=== PATIENT | female | born 1980 | race Caucasian/White ===

== ENCOUNTER 2018-05-20 19:01 | Emergency (ER) | payer BC, OTHER ==
--- NOTE | 2018-05-20 20:05 | ER Document Report ---
ED Medical Screen (RME) - General Chief Complaint: Vag Bleeding, +preg <12wks Stated Complaint: ABDOMINAL PAIN,VAGINAL BLEEDING Time Seen by Provider: 05/20/18 19:58 Primary Care Provider: DAV CLIFTON MD [Primary Care Provider] - Follow up as needed TRAVEL OUTSIDE OF THE [place] IN LAST 30 DAYS: No - HPI Notes: 05/20/18 20:04 Patient is a 37-year-old female approximately 13 weeks 5 days who presents to the emergency department complaining of cramping and spotting that began today. Patient has a blood type O- and was told to come to the emergency department for evaluation and RhoGam by MYSQL DATABASE ADMINISTRATOR. No other concerns or complaints. Denies AMOS, fever, neck pain, URI, CP, SOB, dysuria, or rash. I have treated and performed a rapid initial assessment of this patient. A comprehensive ED assessment and evaluation of the patient, analysis of test results and completion of medical decision making process will be conducted by additional ED providers. Spoke with blood bank, they still need to initiate rhogam w/u prior to dispensing rhogam. PHYSICAL EXAMINATION: GENERAL: Well-appearing, well-nourished and in no acute distress. A&Ox4. Answers questions appropriately. LUNGS: Breath sounds clear to auscultation bilaterally and equal. No wheezes rales or rhonchi. HEART: Regular rate and rhythm without murmurs, rubs, gallops. ABDOMEN: Soft, nondistended abdomen. No guarding, no rebound. Normal bowel sounds present. No CVA tenderness bilaterally. nontender (cannot elicit thorough abd exam w/o table, however). Extremities: No cyanosis, clubbing, or edema b/l. NEUROLOGICAL: Normal speech, normal gait. PSYCH: Normal mood, normal affect. - Related Data Allergies/Adverse Reactions: No Known Allergies Allergy (Verified 12/08/15 00:08) Past Medical History - Social History Chew tobacco use (# tins/day): No Frequency of alcohol use: None Drug Abuse: None Renal/ Medical History: Denies: Hx Peritoneal Dialysis - Immunizations Hx Diphtheria, Pertussis, Tetanus Vaccination: No Physical Exam - Vital signs Vitals: Temp Pulse Resp BP Pulse Ox 98.8 F 67 16 128/80 H 100 05/20/18 19:18 05/20/18 19:18 05/20/18 19:18 05/20/18 19:18 05/20/18 19:18 Course - Vital Signs Vital signs: Temp Pulse Resp BP Pulse Ox 98.8 F 67 16 128/80 H 100 05/20/18 19:18 05/20/18 19:18 05/20/18 19:18 05/20/18 19:18 05/20/18 19:18 Doctor's Discharge - Discharge Referrals: DAV CLIFTON MD [Primary Care Provider] - Follow up as needed
[2018-05-20 20:46] LABS: APPEARANCE,URINE SLIGHTLY-CLOUDY; BILIRUBIN,URINE NEGATIVE (NEGATIVE); COLOR,URINE YELLOW; GLUCOSE, URINE NEGATIVE (NEGATIVE); KETONES,URINE NEGATIVE (NEGATIVE); LEUKOCYTE ESTERASE,URINE NEGATIVE (NEGATIVE); NITRITE,URINE NEGATIVE (NEGATIVE); PROTEIN,URINE NEGATIVE (NEGATIVE); URINE SPECIFIC GRAVITY 1.023; UROBILINOGEN,URINE NEGATIVE mg/dL (<2.0)
--- NOTE | 2018-05-20 22:25 | RADIOLOGY REPORT (SQ) ---
EXAM DESCRIPTION: US LESS THAN 14 WEEKS COMPLETED DATE/TME: 05/20/2018 20:03 CLINICAL HISTORY: 37 years, Female, Pt is 13 weeks 5 days preg/bleeding Findings: Uterus is anteverted and measures 12.4 x 6.9 x 9.2 cm. Single IUP is noted measuring 10 weeks and two days. heart motion is not visualized on color Doppler images. Right ovary measures 4.2 x 2.0 x 2.5 cm. Left ovary measures 3.3 x 1.4 x 2.1 cm. Vascular flow noted in both ovaries on color and spectral Doppler images. No abnormal adnexal masses. Cervix measures 2.5 cm. No free fluid in the cul-de-sac. IMPRESSION: Findings consistent with intrauterine demise.
--- NOTE | 2018-05-21 00:18 | ER Document Report ---
ED General - General Chief Complaint: Vag Bleeding, +preg <12wks Stated Complaint: ABDOMINAL PAIN,VAGINAL BLEEDING Time Seen by Provider: 05/20/18 19:58 Primary Care Provider: ELOINA RICHMOND DO [ACTIVE STAFF] - Follow up tomorrow (Please call at 8am for an appointment tomorrow) Notes: Due to a small amount of vaginal spotting as well as intermittent lower abdominal cramping. States vaginal spotting started earlier today, was a very mild amount of brownish vaginal discharge. He states for the past 2-3 days she has been having some intermittent generalized lower abdominal cramping. Describes pain as being mild to moderate, intermittent in nature. Not improving or worsening since onset. Nothing seems to improve or worsen the symptoms. No history of similar symptoms during her previous . She did contact the OB on-call who recommended she come to the emergency department given that she is Rh- and needed RhoGam. Patient denies fever or constitutional symptoms. No dysuria. No trauma to the abdomen. TRAVEL OUTSIDE OF THE [place] IN LAST 30 DAYS: No - Related Data Allergies/Adverse Reactions: No Known Allergies Allergy (Verified 12/08/15 00:08) Past Medical History - General Information source: Patient - Social History Smoking Status: Never Smoker Chew tobacco use (# tins/day): No Frequency of alcohol use: None Drug Abuse: None Lives with: Spouse/Significant other Family History: Reviewed & Not Pertinent Patient has suicidal ideation: No Patient has homicidal ideation: No Renal/ Medical History: Denies: Hx Peritoneal Dialysis - Immunizations Hx Diphtheria, Pertussis, Tetanus Vaccination: No Review of Systems - Review of Systems Notes: Constitutional: Negative for fever. HENT: Negative for sore throat. Eyes: Negative for visual changes. Cardiovascular: Negative for chest pain. Respiratory: Negative for shortness of breath. Gastrointestinal: Positive for lower abdominal cramping Genitourinary: Positive vaginal bleeding Musculoskeletal: Negative for back pain. Skin: Negative for rash. Neurological: Negative for headaches, weakness or numbness. 10 point ROS negative except as marked above and in HPI. Physical Exam - Vital signs Vitals: Temp Pulse Resp BP Pulse Ox 98.8 F 67 16 128/80 H 100 05/20/18 19:18 05/20/18 19:18 05/20/18 19:18 05/20/18 19:18 05/20/18 19:18 Interpretation: Normal Notes: PHYSICAL EXAMINATION: GENERAL: Well-appearing, well-nourished and in no acute distress. HEAD: Atraumatic, normocephalic. EYES: Pupils equal round and reactive to light, extraocular movements intact, sclera anicteric, conjunctiva are normal. ENT: nares patent, oropharynx clear without exudates. Moist mucous membranes. NECK: Normal range of motion, supple without lymphadenopathy LUNGS: Breath sounds clear to auscultation bilaterally and equal. No wheezes rales or rhonchi. HEART: Regular rate and rhythm without murmurs ABDOMEN: Soft, nontender, normoactive bowel sounds. No guarding, no rebound. No masses appreciated. EXTREMITIES: Normal range of motion, no pitting or edema. No cyanosis. NEUROLOGICAL: No focal neurological deficits. Moves all extremities spontaneously and on command. PSYCH: Normal mood, normal affect. SKIN: Warm, Dry, normal turgor, no rashes or lesions noted. Course - Re-evaluation Re-evalutation: 05/21/18 00:15 Patient is a Rh- patient presents with vaginal spotting and abdominal cramping in the setting of a first trimester . Unfortunately the patient's ultrasound does show intrauterine demise. She is measuring at 10 weeks and 2 days despite her 8-week ultrasound indicating that she should currently be 13 weeks and 5 days. I did disclose this unfortunate finding to the patient who did convey to her on the phone. The patient will receive RhoGam given that she is Rh-. I did consult with the PURCHASING OFFICER on-call Dr. xavier who asks that the patient be followed up in clinic tomorrow. I have a dvised the patient to call the women's clinic at 8 AM in the morning and set up an appointment for consideration of medical versus surgical options for the situation. The remainder of her exam is otherwise benign. She has had only mild vaginal spotting, no heavy bleeding. At this time will discharge with return precautions and follow-up recommendations. Verbal discharge instructions given a the bedside and opportunity for questions given. Medication warnings reviewed. Patient is in agreement with this plan and has verbalized understanding of return precautions and the need for primary care follow-up in the next 24-72 hours. - Vital Signs Vital signs: Temp Pulse Resp BP Pulse Ox 98.4 F 63 16 147/96 H 100 05/21/18 00:28 05/21/18 00:28 05/21/18 00:28 05/21/18 00:28 05/21/18 00:28 - Laboratory Laboratory results interpreted by me: 05/20/18 20:19 Urine Blood LARGE H - Diagnostic Test Radiology reviewed: Reports reviewed Discharge - Discharge Clinical Impression: demise, First trimester bleeding Condition: Good Disposition: HOME, SELF-CARE Additional Instructions: Unfortunately your ultrasound today shows that you have had demise. You have received RhoGam prior to discharge. This is because of your blood type being O-. Please contact the women's clinic office at 8 AM tomorrow morning to schedule an appointment to be seen tomorrow. Please return to the emergency department sooner if you began bleeding through more than 2 pads per hour for more than 2 hours, develop severe abdominal pain, develop a fever of greater than 100.4 F, have persistent vomiting, or any other symptoms that are worrisome to you. Referrals: ELOINA RICHMOND, DO [ACTIVE STAFF] - Follow up tomorrow (Please call at 8am for an appointment tomorrow)
[2018-05-21 00:29] VITALS: BP 147/96
== END 2018-05-21 00:29 | disposition home or self-care (01) ==
LOC: ER 19:01
DX: O36.0910 Maternal care for other rhesus isoimmunization, first trimester, not applicable or unspecified (principal); O02.1 Missed abortion; Z3A.13 13 weeks gestation of pregnancy
CPT/HCPCS: 99284; 96372; 86900; 86901; 36415; 87086; 86870; 86850; 81001; 76801; 93976; J2790

== ENCOUNTER 2018-05-21 14:23 | Emergency (ER) | payer OTHER ==
[2018-05-21 14:52] LABS: ABSOLUTE EOSINOPHILS # (AUTO) 0.2 10^3/uL (0.0-0.6); ABSOLUTE LYMPHOCYTES (AUTO) 2.4 10^3/uL (0.5-4.7); ABSOLUTE MONOCYTES (AUTO) 0.5 10^3/uL (0.1-1.4); BASOPHILS % (AUTO) 0.4 % (0-2); EOSINOPHILS % (AUTO) 2.4 % (0-6); HEMATOCRIT 39.9 % (36.0-47.0); HEMOGLOBIN 13.7 g/dL (12.0-15.5); MEAN CORPUSCULAR HEMOGLOBIN 29.4 pg (27.0-33.4); MEAN CORPUSCULAR HGB CONC 34.4 g/dL (32.0-36.0); MEAN CORPUSCULAR VOLUME 86 fl (80-97); MONOCYTES % (AUTO) 5.9 % (3-13); PLATELET COUNT 239 10^3/uL (150-450); RED BLOOD COUNT 4.66 10^6/uL (3.72-5.28); RED CELL DISTRIBUTION WIDTH 13.9 % (11.5-14.0); SEGMENTED NEUTROPHILS % (AUTO) 65.3 % (42-78); TOTAL CELLS COUNTED % (AUTO) 100 %; WHITE BLOOD COUNT 9.2 10^3/uL (4.0-10.5)
[2018-05-21 17:47] LABS: APPEARANCE,URINE SLIGHTLY-CLOUDY; BILIRUBIN,URINE NEGATIVE (NEGATIVE); COLOR,URINE YELLOW; GLUCOSE, URINE NEGATIVE (NEGATIVE); KETONES,URINE NEGATIVE (NEGATIVE); LEUKOCYTE ESTERASE,URINE NEGATIVE (NEGATIVE); NITRITE,URINE NEGATIVE (NEGATIVE); PROTEIN,URINE NEGATIVE (NEGATIVE); URINE SPECIFIC GRAVITY 1.026; UROBILINOGEN,URINE NEGATIVE mg/dL (<2.0)
--- NOTE | 2018-05-21 19:07 | ER Document Report ---
ED General - General Chief Complaint: Vag Bleeding, +preg <12wks Stated Complaint: VAGINAL BLEEDING Time Seen by Provider: 05/21/18 16:21 Primary Care Provider: DAV CLIFTON MD [Primary Care Provider] - Follow up as needed TRAVEL OUTSIDE OF THE [place] IN LAST 30 DAYS: No - HPI Notes: Patient is a female, suffered intrauterine demise at approximately 13 weeks, who presents emergency department for dizziness and vaginal bleeding. She was actually seen here recently, diagnosed with this IUFD. She was seen in follow-up, given Cytotec. She had sudden onset heavy bleeding and clots. She felt very lightheaded, dizzy. She became very concerned that she might be losing too much blood so she presents to the emergency department for evaluation. - Related Data Allergies/Adverse Reactions: No Known Allergies Allergy (Verified 12/08/15 00:08) Past Medical History - General Information source: Patient - Social History Smoking Status: Never Smoker Frequency of alcohol use: Rare Drug Abuse: None Family History: Reviewed & Not Pertinent Patient has suicidal ideation: No Patient has homicidal ideation: No Renal/ Medical History: Denies: Hx Peritoneal Dialysis - Immunizations Hx Diphtheria, Pertussis, Tetanus Vaccination: No Review of Systems - Review of Systems Constitutional: No symptoms reported EENT: No symptoms reported Cardiovascular: No symptoms reported Respiratory: No symptoms reported Gastrointestinal: No symptoms reported Genitourinary: No symptoms reported Female Genitourinary: See HPI Musculoskeletal: No symptoms reported Skin: No symptoms reported Neurological/Psychological: See HPI Physical Exam - Vital signs Vitals: Temp Pulse Resp BP Pulse Ox 98.4 F 67 18 141/71 H 100 05/21/18 14:28 05/21/18 14:28 05/21/18 14:28 05/21/18 14:28 05/21/18 14:28 - Notes Notes: Vital signs reviewed, please refer to chart. Patient is normocephalic, atraumatic. Pupils equal round, reactive to light. Neck is supple without meningismus. Heart is regular rate and rhythm. Lungs are clear to auscultation bilaterally. Abdomen is soft, nontender, normoactive bowel sounds throughout. Extremities without cyanosis, clubbing, edema. Peripheral pulses are equal. Skin is warm and dry. Patient is awake, alert, oriented x3. Cranial nerves II through XII are grossly intact without focal neurological deficits. Strength is plus 5 out of 5 bilateral upper and lower extremities. Sensation is intact, reflexes symmetrical, gait within normal limits. Pelvic exam is performed. There is a mild amount of vaginal bleeding noted. Cervical loss is open, no tissue at the office. No significant tenderness. Course - Re-evaluation Re-evalutation: 05/21/18 19:05 Patient presented to the emergency department for evaluation. She had laboratory investigations as ordered through triage. Her hemoglobin is within normal limits. She is not heavily bleeding at this time. She is to follow-up with her OB, return to the ED with worsening or new concerning symptoms. - Vital Signs Vital signs: Temp Pulse Resp BP Pulse Ox 98.4 F 67 18 141/71 H 100 05/21/18 14:28 05/21/18 14:28 05/21/18 14:28 05/21/18 14:28 05/21/18 14:28 - Laboratory Result Diagrams: 05/21/18 14:06 Laboratory results interpreted by me: 05/21/18 17:13 Urine Blood LARGE H Discharge - Discharge Clinical Impression: Miscarriage, Dizziness Condition: Stable Disposition: HOME, SELF-CARE Instructions: Miscarriage ([facility]) Additional Instructions: Continue complete pelvic rest instructions as previously informed. Follow-up with OB as scheduled. Rest. If you start going through more than 2 pads an hour, develop chest pain, dizziness, fever, or any other new or concerning symptoms, return immediately to the emergency department for reevaluation. Referrals: DAV CLIFTON MD [Primary Care Provider] - Follow up as needed
[2018-05-21 19:21] VITALS: BP 115/72
== END 2018-05-21 19:28 | disposition home or self-care (01) ==
LOC: ER 14:23
DX: O03.9 Complete or unspecified spontaneous abortion without complication (principal); R42 Dizziness and giddiness
CPT/HCPCS: 36415; 81001; 85025; 99284

== ENCOUNTER 2019-04-20 08:25 | Inpatient (IN) | payer OTHER ==
[2019-04-20] MEDS ORDERED: PENICILLIN G-K 5 MILLION UNIT VIAL ONE (08:47)
[2019-04-20] MEDS ORDERED: MISOPROSTOL 0.2 MG TABLET ONE ×2 (08:48→08:51)
[2019-04-20] MEDS ORDERED: OXYTOCIN 10 UNIT/ML VIAL ONE ×2 (08:48→08:51)
[2019-04-20] MEDS ORDERED: OXYTOCIN/NORMAL SALINE 0 UNIT/0 ML RTUINJ ONE (08:48)
[2019-04-20] MEDS ORDERED: LIDOCAINE 1% INJ-PF (10 MG/ML) 30 ML SDV ONE ×2 (08:48→08:51)
[2019-04-20] MEDS ORDERED: OXYTOCIN/NORMAL SALINE 20 UNIT/1,000 ML RTUINJ ONE (08:52)
[2019-04-20] MEDS ORDERED: RINGERS SOLUTION,LACTATED 1,000 ML IV ONE (08:54)
[2019-04-20] MEDS ORDERED: PENICILLIN G POTASSIUM 5,000,000 UNIT in DEXTROSE 5%-WATER 100 ML IV ONE (08:54)
[2019-04-20] MEDS ORDERED: RINGERS SOLUTION,LACTATED 1,000 ML IV PRN (08:54)
[2019-04-20 09:36] LABS: ABSOLUTE EOSINOPHILS # (AUTO) 0.1 10^3/uL (0.0-0.6); ABSOLUTE LYMPHOCYTES (AUTO) 1.2 10^3/uL (0.5-4.7); ABSOLUTE MONOCYTES (AUTO) 0.5 10^3/uL (0.1-1.4); ABSOLUTE NEUT (AUTO) 9.5 10^3/uL (1.7-8.2); BASOPHILS % (AUTO) 0.4 % (0-2); EOSINOPHILS % (AUTO) 0.6 % (0-6); HEMATOCRIT 36.6 % (36.0-47.0); HEMOGLOBIN 12.1 g/dL (12.0-15.5); LYMPHOCYTES % (AUTO) 10.6 % (13-45); MEAN CORPUSCULAR HEMOGLOBIN 27.5 pg (27.0-33.4); MEAN CORPUSCULAR HGB CONC 33.2 g/dL (32.0-36.0); MEAN CORPUSCULAR VOLUME 83 fl (80-97); MONOCYTES % (AUTO) 4.8 % (3-13); PLATELET COUNT 198 10^3/uL (150-450); RED BLOOD COUNT 4.41 10^6/uL (3.72-5.28); RED CELL DISTRIBUTION WIDTH 21.2 % (11.5-14.0); SEGMENTED NEUTROPHILS % (AUTO) 83.6 % (42-78); TOTAL CELLS COUNTED % (AUTO) 100 %; WHITE BLOOD COUNT 11.4 10^3/uL (4.0-10.5)
[2019-04-20] MEDS ORDERED: FENTANYL/BUPIVACAINE/NS/PF 300 MCG/150 ML RTUINJ EPI ONE (09:41)
[2019-04-20] MEDS ORDERED: EPHEDRINE SULFATE INJ 50 MG/1 ML AMPULE ONE (09:41)
[2019-04-20] MEDS ORDERED: BUPIVACAINE HCL 0.25 % INJ/PF (2.5 MG/1 ML) 30 ML VIAL ONE (09:41)
--- NOTE | 2019-04-20 09:56 | Admission Physical ---
Datetime Report Generated by CPN: 04/20/2019 09:56 CURRENT ADMISSION Chief Complaint: Uterine Contractions Indication for Induction: Not Applicable Admit Impression : Term, Intrauterine ; Active Labor; Intact Membranes Admit Plan: Admit to Unit; Initiate Labor Protocol ALLERGIES Medication Allergies: No Known Allergies (12/08/2015) OBSTETRICAL HISTORY EDC: 04/24/2019 00:00 : 5 Para: 3 Term: 3 : 0 SAB: 1 IAB: 0 Ectopic: 0 Livin Cesareans: 0 VBACs: 0 Multiple Births: 0 Gestational Diabetes: No Rh Sensitization: No Incompetent Cervix: No NHUNG: No Infertility: No ART Treatment: No Uterine Anomaly: No IUGR: No Hx Previous C/S: No Macrosomia: No Hx Loss/Stillborn: No PIH: No Hx : No Placenta Previa/Abruption: No Depression/PP Depression: No PTL/PROM: No Post Hemorrhage: Yes Current Procedures: Ultrasound; NST Obstetrical History Comments: G1: 2010 37.4 wks, 6lbs 12 oz female G2: 2013, 38 wks 7lbs 3 oz, male, vaginal - Hemorrhage G3: 2015, 40.3, 8lbs 6 oz, male, vaginal G4: 14 wks SAB G5: current SEE RECORDS Alcohol: No Marijuana : No Cocaine: No Other Illicit Drugs: No Cigarettes: Never Smoker. [id number] MEDICAL HISTORY Diabetes: No Blood Transfusion: No Pulmonary Disease (Asthma, TB): No Breast Disease: No Hypertension: No C D Area Supervisor Surgery: No Heart Disease: No Hosp/Surgery: Yes Autoimmune Disorder: No Anesthetic Complications: No Kidney Disease: No Abnormal Pap Smear: No Neuro/Epilepsy: No Psychiatric Disorders: No Other Medical Diseases: No Hepatitis/Liver Disease: No Significant Family History: No Varicosities/Phlebitis: No Trauma/Violence : No Thyroid Dysfunction: No Medical History Comments: wisdom teeth removal 2003, childbirth INFECTIOUS HISTORY Gonorrhea: No Genital Herpes: No Chlamydia: No Tuberculosis: No Syphilis: No Hepatitis: No HIV/AIDS Exposure: No Rash or Viral Illness: No HPV: No PHYSICAL EXAM General: Normal HEENT: Normal Neurologic: Normal Thyroid: Deferred Heart: Normal Lungs: Normal Breast: Deferred Back: Normal Abdomen: Normal Genitourinary Exam: Normal Extremities: Normal DTRs: Normal Pelvic Type: Adequate Vital Signs: Reviewed VAGINAL EXAM Dilatation: 6 Effacement: 70 Station: -2 Contraction Comments: q 3 MEMBRANES Membranes: Intact FETUS A EGA: 39.3 Monitoring: External US FHR- Baseline: 125 Variability: Moderate 6-25bpm Accelerations: 15X15 Decelerations: None FHR Category: Category I Presentation: Vertex Admit Comment: 38yo at 39+3ega presents for active labor with regular uterine contractions and advanced cervical dilation. GBS pos - no allergies, PCN started. H/o PPH - will make staff nurse anesthetist aware. Abn AFP - positive DSR but MaterniT 21 negative. Rh negative, AMA. GBS positive. Admit for active labor and anticipate . PLANS FOR LABOR AND DELIVERY Labor and Delivery: None Pain Management: Epidural Feeding Preference: Breast Benefit of Breast Feed Discussed: Yes Circumcision: N/A INFORMED CONSENT Informed Consent Obtained: Vaginal Delivery; Risks, Benefits and Alternatives Discussed Signature: with User ID: [email or web address]
[2019-04-20 10:47] LABS: APPEARANCE,URINE CLEAR; BILIRUBIN,URINE NEGATIVE (NEGATIVE); COLOR,URINE YELLOW; GLUCOSE, URINE NEGATIVE (NEGATIVE); KETONES,URINE NEGATIVE (NEGATIVE); LEUKOCYTE ESTERASE,URINE NEGATIVE (NEGATIVE); NITRITE,URINE NEGATIVE (NEGATIVE); PROTEIN,URINE NEGATIVE (NEGATIVE); URINE SPECIFIC GRAVITY 1.016; UROBILINOGEN,URINE NEGATIVE mg/dL (<2.0)
[2019-04-20 11:19] LABS: URINE AMPHETAMINES SCREEN NEGATIVE; URINE BARBITURATES SCREEN NEGATIVE; URINE BENZODIAZEPINES SCREEN NEGATIVE; URINE COCAINE SCREEN NEGATIVE; URINE MARIJUANA (THC) SCREEN NEGATIVE; URINE METHADONE SCREEN NEGATIVE; URINE PHENCYCLIDINE SCREEN NEGATIVE
[2019-04-20] MEDS ORDERED: NORMAL SALINE 250 ML IV PRN ×2 (11:29)
[2019-04-20] MEDS ORDERED: PENICILLIN G POTASSIUM 2,500,000 UNIT in DEXTROSE 5%-WATER 50 ML IV SCH ×4 (13:00)
--- NOTE | 2019-04-20 13:45 | Warning Signs in Babies ---
VOD Warning Signs Datetime Report Generated by [facility]: 04/20/2019 13:44 VOD#608 -Warning Signs in Babies: Needs to be viewed. (04/20/2019 08:44:Marifer Caballero RN)
[2019-04-20] MEDS ORDERED: PROMETHAZINE HCL 25 MG SUPP.RECT PR PRN (13:46)
[2019-04-20] MEDS ORDERED: PROMETHAZINE HCL INJ 25 MG/1 ML VIAL IV PRN (13:46)
[2019-04-20] MEDS ORDERED: OXYTOCIN/NORMAL SALINE 20 UNIT/1,000 ML RTUINJ IV PRN (13:46)
[2019-04-20] MEDS ORDERED: MEASLES,MUMPS&RUBELLA VACC/PF 0.5 ML VIAL SUBCUT PRN (13:46)
[2019-04-20] MEDS ORDERED: MAGNESIUM HYDROXIDE SUSP 30 ML UDCUP PO PRN (13:46)
[2019-04-20] MEDS ORDERED: ACETAMINOPHEN 325 MG TABLET PO PRN (13:46)
[2019-04-20] MEDS ORDERED: DIPH/PERTUSS(ACELL)/TETANUS VAC/PF 0.5 ML SYR (>=10YO) IM PRN (13:46)
[2019-04-20] MEDS ORDERED: PROMETHAZINE HCL 25 MG TABLET PO PRN (13:46)
[2019-04-20] MEDS ORDERED: PSEUDOEPHEDRINE HCL 30 MG TABLET PO PRN (13:46)
[2019-04-20] MEDS ORDERED: GLYCERIN/WITCH HAZEL LEAF 1 EACH MED..WIPE TP PRN (13:46)
[2019-04-20] MEDS ORDERED: NA PHOS,M-B/NA PHOS,DI-BA (ADULT) 133 ML ENEMA PR PRN (13:46)
[2019-04-20] MEDS ORDERED: DIBUCAINE 1% OINTMENT 28 GM TP PRN (13:46)
[2019-04-20] MEDS ORDERED: DIPHENHYDRAMINE HCL 25 MG CAPSULE PO PRN (13:46)
[2019-04-20] MEDS ORDERED: BENZOCAINE/MENTHOL AEROSOL SPRAY 56 ML TOP PRN (13:46)
[2019-04-20] MEDS ORDERED: MISOPROSTOL 0.2 MG TABLET PR ONE (13:50)
[2019-04-20] MEDS ORDERED: IBUPROFEN 800 MG TABLET ONE (15:13)
[2019-04-20] MEDS ORDERED: MAG HYDROX/AL HYDROX/SIMETH SUSP 30 ML UDCUP ONE (15:14)
[2019-04-20] MEDS: IBUPROFEN 800 MG TABLET PO SCH ×2 (15:18→21:50)
--- NOTE | 2019-04-20 15:40 | Warning Signs in Babies ---
VOD Warning Signs Datetime Report Generated by [facility]: 04/20/2019 15:40 VOD#608 -Warning Signs in Babies: Viewed with Parent(s)/Family (04/20/2019 08:44:Marifer Caballero RN)
--- NOTE | 2019-04-20 15:40 | Delivery Summary ---
Del Sum A-C Datetime Report Generated by CPN: 04/20/2019 15:40 DELIVERY PERSONNEL DELIVERY PERSONNEL: [id number] Nurse Computer Graphics Illustrator Certified:: Shelbi Mott CNM Labor and Delivery Nurse:: Marifer Caballero RN Nursery Nurse:: Keely George Nursery Nurse:: Neelima Marcial RN Film Washer/RATTLESNAKE FARMER: Zulay Cordova CNA II MATERNAL INFORMATION Delivery Anesthesia: Epidural Medications After Delivery: Pitocin Drip 20 Units/1000ml NSS; Cytotec 1000mcg Per Rectum/Vagina Estimated Blood Loss (ml): 50 Delivery QBL: 50 Delivery QBL Comment: 50 Maternal Complications: None Provider Comments: pt progressed to c/c/2 and I was called into room for delivery. Pt began pushing and quickly delivered a viable baby girl in [place] presentation. Baby with vigorous respiratory effort but weak cry after tactile stimulation. Placed on maternal abdomen, cord allowed to stop pulsating while tactile stimulation continued. Cord clamped x2 and cut by FOB. Vigorous cry but still blue; call placed to Nursery for assessment by RN. Baby to warmer for assessment. Cord blood obtained and placenta quickly delivered spontaneously intact. No lacerations on inspection but small perineal abrasion at entroitus as stated. Bleeding stable, fundus @ U-2, 1000mcg of cytotec placed rectally for prophylaxis due to hx of PPH. Mother stable at this time, baby transfered to Nursery for further evaluation. LABOR SUMMARY EDC: 04/24/2019 00:00 No. Babies in Womb: 1 Attempted: No Labor Anesthesia: Epidural LABOR INFORMATION Reason for Induction: Not Applicable Onset of Labor: 04/20/2019 08:46 Complete Dilatation: 04/20/2019 12:35 Oxytocin: N/A Group B Beta Strep: positive Antibiotics # of Doses: 2 Antibiotics Time of Last Dose: 1220 Name of Antibiotic Given: Pencillin Steroids Given: None Reason Steroids Not Administered: Not Applicable MEMBRANES Membranes Rupture Method: Spontaneous Rupture of Membranes: 04/20/2019 12:12 Length of Rupture (hr): 0.90 Amniotic Fluid Color: Clear Amniotic Fluid Amount: Small Amniotic Fluid Odor: Normal STAGES OF LABOR Stage 1 hr: 3 Stage 1 min: 49 Stage 2 hr: 0 Stage 2 min: 31 Stage 3 hr: 0 Stage 3 min: 8 Total Time in Labor hr: 4 Total Time in Labor min: 28 VAGINAL DELIVERY Episiotomy: None Laceration #1: None Laceration Extension #1: N/A Other Laceration: perineal abrasion along prior laceration scar Laceration Repair: Not Applicable Laceration Repair Note: no bleeding, no need for repair Sponge Count Correct: N/A Sharps Count Correct: N/A CSECTION DELIVERY Primary Indication: N/A Secondary Indication: N/A CSection Incidence: N/A Labor: N/A Elective: N/A CSection Incision: N/A BABY A INFORMATION Delivery Date/Time: 04/20/2019 13:06 Method of Delivery: Vaginal Nurse Controlled Delivery: No Born in Route : No : N/A Forceps: N/A Vacuum Extraction: N/A Shoulder Dystocia : No PRESENTATION/POSITION BABY A Presentation: Cephalic Cephalic Presentation: Vertex Vertex Position: Left Occipital Anterior Breech Presentation: N/A PLACENTA INFORMATION BABY A Placenta Delivery Time : 04/20/2019 13:14 Placenta Method of Delivery: Spontaneous Placenta Status: Delivered SCORES BABY A Heart Rate 1 min: >100 bpm Resp Effort 1 min: Slow, Irregular Reflex Irritability 1 min: Cough or Sneeze or Pulls Away Muscle Tone 1 min: Active Motion Color 1 min: Blue/Pale Resuscitation Effort 1 min: Tactile Stimulation SCORE 1 MIN: 7 Heart Rate 5 min: >100 bpm Resp Effort 5 min: Slow, Irregular Reflex Irritability 5 min: Cough or Sneeze or Pulls Away Muscle Tone 5 min: Active Motion Color 5 min: Blue/Pale Resuscitation Effort 5 min: Tactile Stimulation; Oxygen SCORE 5 MIN: 7 Heart Rate 10 min: >100 bpm Resp Effort 10 min: Slow, Irregular Reflex Irritability 10 min: Cough or Sneeze or Pulls Away Muscle Tone 10 min: Active Motion Color 10 min: Body [place], Extremities Blue Resuscitation Effort 10 min: Tactile Stimulation; Oxygen; PPV/NCPAP SCORE 10 MIN: 8 INFANT INFORMATION BABY A Gestational Age at Delivery: 39.3 Gestational Status: Full Term- 39- 40.6 Weeks Infant Outcome : Liveborn Condition : Fair Sex: Female IDENTIFICATION BABY A Infant Verification Date/Time: 04/20/2019 13:22 ID Band Number: [id number] Mother's Name Verified: Yes RN Verifying : Kate RN Additional Verifying Personnel: Pierre Cordova CNA II WEIGHT/LENGTH BABY A Birthweight (gm): 4155 Infant Weight (lb): 9 Infant Weight (oz): 3 Length (in): 20.00 Infant Length (cm): 50.80 CORD INFORMATION BABY A No. Cord Vessels: 3 Nuchal Cord : N/A Cord Blood Taken: Yes-For Eval (Mom's Blood Type - or O+) Suction: Mouth ASSESSMENT BABY A Skin to Skin: Yes Skin to Skin Time (min): 5 BABY B INFORMATION : N/A SIGNATURES Assignment: Jeanna Ortega MD Signature: with User ID: Monica : with User ID: Monica
[2019-04-20] MEDS ORDERED: DOCUSATE SODIUM 100 MG CAPSULE PO SCH (18:00)
[2019-04-20] MEDS ORDERED: FERROUS SULFATE 325 MG TABLET PO SCH (18:00)
--- NOTE | 2019-04-20 19:54 | PDOC DISCHARGE SUMMARY ---
Impression - Admit/DC Date/PCP Admission Date/Primary Care Provider: 04/20/19 08:51 DAV CLIFTON MD Discharge Date: 04/20/19 - stable, desires early discharge baby being transfered. Baby's blood type pending, pt might need rhogam prior to discharge, plan reported to RN in unit. Dr. Gamino aware - Discharge Diagnosis (1) Delivery normal Is this a current diagnosis for this admission?: Yes (2) Active labor at term Is this a current diagnosis for this admission?: Yes - Additional Information Discharge Diet: As Tolerated, Regular Discharge Activity: Activity As Tolerated, Balance Activity w/Rest, No Lifting Over 10 Pounds, Pelvic Rest, No tub bath Referrals: DAV CLIFTON MD [Primary Care Provider] - Prescriptions: Ibuprofen [Motrin 800 mg Tablet] 800 mg PO Q8HP PRN #20 tablet PRN Reason: For Pain Scale 1-3 Docusate Sodium [Colace 100 mg Capsule] 100 mg PO BID #60 capsule Methylergonovine Maleate [Methergine 0.2 Mg Tablet] 0.2 mg PO Q8 #6 tablet Home Medications: No.137/Iron/Folic Acd [ Vitamin Tablet] 1 each PO DAILY 04/27/13 Ferrous Sulfate [Feosol 325 mg Tablet] 325 mg PO BID #60 tablet 12/10/15 Docusate Sodium [Colace 100 mg Capsule] 100 mg PO BID #60 capsule 04/20/19 Ibuprofen [Motrin 800 mg Tablet] 800 mg PO Q8HP PRN #20 tablet 04/20/19 Methylergonovine Maleate [Methergine 0.2 Mg Tablet] 0.2 mg PO Q8 #6 tablet 04/20/19 Results Laboratory Results: WBC 11.4 10^3/uL (4.0-10.5) H 04/20/19 09:22 RBC 4.41 10^6/uL (3.72-5.28) 04/20/19 09:22 Hgb 12.1 g/dL (12.0-15.5) 04/20/19 09:22 Hct 36.6 % (36.0-47.0) 04/20/19 09:22 MCV 83 fl (80-97) 04/20/19 09:22 MCH 27.5 pg (27.0-33.4) 04/20/19 09:22 MCHC 33.2 g/dL (32.0-36.0) 04/20/19 09:22 RDW 21.2 % (11.5-14.0) H 04/20/19 09:22 Plt Count 198 10^3/uL (150-450) 04/20/19 09:22 Lymph % (Auto) 10.6 % (13-45) L 04/20/19 09:22 [place] % (Auto) 4.8 % (3-13) 04/20/19 09:22 Eos % (Auto) 0.6 % (0-6) 04/20/19 09: Baso % (Auto) 0.4 % (0-2) 04/20/19 09:22 Absolute Neuts (auto) 9.5 10^3/uL (1.7-8.2) H 04/20/19 09:22 Absolute Lymphs (auto) 1.2 10^3/uL (0.5-4.7) 04/20/19 09:22 Absolute Monos (auto) 0.5 10^3/uL (0.1-1.4) 04/20/19 09:22 Absolute Eos (auto) 0.1 10^3/uL (0.0-0.6) 04/20/19 09:22 Absolute Basos (auto) 0.0 10^3/uL (0.0-0.2) 04/20/19 09:22 Seg Neutrophils % 83.6 % (42-78) H 04/20/19 09:22 Urine Color YELLOW 04/20/19 10:02 Urine Appearance CLEAR 04/20/19 10:02 Urine pH 7.0 (5.0-9.0) 04/20/19 10:02 Ur Specific [place] 1.016 04/20/19 10:02 Urine Protein NEGATIVE mg/dL (NEGATIVE) 04/20/19 10:02 Urine Glucose (UA) NEGATIVE mg/dL (NEGATIVE) 04/20/19 10:02 Urine Ketones NEGATIVE mg/dL (NEGATIVE) 04/20/19 10:02 Urine Blood NEGATIVE (NEGATIVE) 04/20/19 10:02 Urine Nitrite NEGATIVE (NEGATIVE) 04/20/19 10:02 Urine Bilirubin NEGATIVE (NEGATIVE) 04/20/19 10:02 Urine Urobilinogen NEGATIVE mg/dL (<2.0) 04/20/19 10:02 Ur Leukocyte Esterase NEGATIVE (NEGATIVE) 04/20/19 10:02 Urine Ascorbic Acid NEGATIVE (NEGATIVE) 04/20/19 10:02 Urine Opiates Screen NEGATIVE 04/20/19 10:02 Urine Methadone Screen NEGATIVE 04/20/19 10:02 Ur Barbiturates Screen NEGATIVE 04/20/19 10:02 Ur Phencyclidine Scrn NEGATIVE 04/20/19 10:02 Ur Amphetamines Screen NEGATIVE 04/20/19 10:02 U Benzodiazepines Scrn NEGATIVE 04/20/19 10:02 Urine Cocaine Screen NEGATIVE 04/20/19 10:02 U Marijuana (THC) Screen NEGATIVE 04/20/19 10:02 Blood Type O NEGATIVE 04/20/19 09:22 Antibody Screen POSITIVE 04/20/19 09:22 Antibody Identification Anti-D 04/20/19 09:22 Crossmatch See Detail 04/20/19 09:22
[2019-04-20 20:03] LABS: HEMATOCRIT 36.9 % (36.0-47.0); HEMOGLOBIN 12.7 g/dL (12.0-15.5); MEAN CORPUSCULAR HEMOGLOBIN 28.4 pg (27.0-33.4); MEAN CORPUSCULAR HGB CONC 34.4 g/dL (32.0-36.0); MEAN CORPUSCULAR VOLUME 83 fl (80-97); PLATELET COUNT 212 10^3/uL (150-450); RED BLOOD COUNT 4.47 10^6/uL (3.72-5.28); RED CELL DISTRIBUTION WIDTH 21.6 % (11.5-14.0); WHITE BLOOD COUNT 15.4 10^3/uL (4.0-10.5)
[2019-04-20] MEDS ORDERED: FAMOTIDINE 20 MG TABLET PO SCH (22:00)
[2019-04-21] MEDS ORDERED: SENNOSIDES/DOCUSATE 8.6-50 MG 1 EACH TABLET PO SCH (10:00)
[2019-04-21] MEDS ORDERED: PRENATAL VITAMIN W DHA CAPSULE PO SCH (10:00)
== END 2019-04-20 23:35 | disposition home or self-care (01) | DRG 807 ==
LOC: LC 08:25 → LR 08:51 → 2S 17:26
PROVIDERS: ADMIT Student in an Organized Health Care Education/Training Program; ATTEND Student in an Organized Health Care Education/Training Program
PROC: 10E0XZZ Delivery of Products of Conception, External Approach (ICD-10-PCS; principal; 2019-04-20)
PROC: 3E0234Z Introduction of Serum, Toxoid and Vaccine into Muscle, Percutaneous Approach (ICD-10-PCS; 2019-04-20)
DX: O99.824 Streptococcus B carrier state complicating childbirth (principal); Z37.0 Single live birth; O26.893 Other specified pregnancy related conditions, third trimester; Z67.41 Type O blood, Rh negative; Z3A.39 39 weeks gestation of pregnancy
CPT/HCPCS: 36415; 80307; 81005; 85025; 85461; 86592; 86850; 86870; 86900; 86901; 86920; 86922; 94760; J2540; J2590; J2790; J3010; J3490; J7060